=== PATIENT | female | born 1930 | race Caucasian/White ===

== ENCOUNTER 2016-12-23 13:36 | Emergency (ER) | payer OTHER ==
[~2016-12-23] VITALS: Ht 157.5 cm; Wt 56.0 kg
[2016-12-23 13:48] VITALS: BP 107/58; PULSE 86; RESP 16; TEMP 98.2; O2SAT 95
--- NOTE | 2016-12-23 14:10 | PD ---
HPI Chief Complaint: Fall Time Seen by Provider: 13:52 Travel History International Travel<30 days: No Contact w/Intl Traveler<30days: No Traveled to known affect area: No History of Present Illness HPI This 86-year-old female had a fall at home. She was on some stairs with her arms full and she tripped. She had her forearm on something sustaining a laceration. She hit her head. She says her head is not hurting her. She did not have a loss of consciousness. She does have a history of atrial fibrillation and is on Eliquis. PFSH Past Medical History Hx Anticoagulant Therapy: Yes (ELIQUIS) Social History Tobacco Use: No Allergies-Medications (Allergen,Severity, Reaction): Coded Allergies: phenobarbital (Verified Allergy, Unknown, 12/23/16) Reported Meds & Prescriptions Reported Meds & Active Scripts Active Reported Vitamin D3 (Cholecalciferol) 2,000 Unit Cap 2,000 Units PO DAILY Dorzolamide-Timolol Opth Drops 22.3-6.8 Mg/Ml Soln 1 Drop EACH EYE BID Latanoprost Opth Drops (Latanoprost) 0.005% Drops 1 Drop EACH EYE HS Refrigerate until opened. Lisinopril-Hctz 20-12.5 Mg Tab 1 Tab PO DAILY Zoloft (Sertraline HCl) 100 Mg Tab 125 Mg PO DAILY Eliquis (Apixaban) 2.5 Mg Tab 2.5 Mg PO BID Diltiazem ER 24 HR 180 Mg Sunny 180 Mg PO DAILY Niacin 500 Mg Tab 500 Mg PO DAILY Review of Systems General / Constitutional: No: Fever, Chills Eyes: No: Diploplia, Blurred Vision HENT: No: Headaches Cardiovascular: No: Chest Pain or Discomfort, Palpitations Respiratory: No: Cough, Shortness of Breath Gastrointestinal: No: Nausea, Vomiting Genitourinary: No: Urgency, Frequency Musculoskeletal: Positive: Myalgias Skin: No Rash Neurologic: No: Weakness Hematologic/Lymphatic: Positive: Easy Bruising Physical Exam Narrative GENERAL: Well-developed female SKIN: Focused skin assessment warm/dry. There is a 2 cm skin tear on the radial side of the right forearm. There is a hematoma just proximal to this area. HEAD: Atraumatic. Normocephalic. EYES: Pupils equal and round. No scleral icterus. No injection or drainage. ENT: No nasal bleeding or discharge. Mucous membranes pink and moist. NECK: Trachea midline. No JVD. CARDIOVASCULAR: Irregular rate and rhythm. No murmur appreciated. RESPIRATORY: No accessory muscle use. Clear to auscultation. Breath sounds equal bilaterally. GASTROINTESTINAL: Abdomen soft, non-tender, nondistended. Hepatic and splenic margins not palpable. MUSCULOSKELETAL: No obvious deformities. No clubbing. No cyanosis. No edema. NEUROLOGICAL: Awake and alert. No obvious cranial nerve deficits. Motor grossly within normal limits. Normal speech. PSYCHIATRIC: Appropriate mood and affect; insight and judgment normal. Data Data Last Documented VS Vital Signs Date Time Temp Pulse Resp B/P (MAP) Pulse Ox O2 Delivery O2 Flow Rate FiO2 12/23/16 15:08 79 18 126/69 (88) 95 Room Air 12/23/16 13:48 98.2 Orders Orders Tetanus/Diphtheria Tox Adult (Tetanus/Di (12/23/16 14:15) Forearm (2vws) (12/23/16 14:04) Ct Brain W/O Iv Contrast(Rout) (12/23/16 14:04) Wound Care (12/23/16 14:04) MDM Medical Decision Making Medical Screen Exam Complete: Yes Emergency Medical Condition: Yes Medical Record Reviewed: Yes Differential Diagnosis Differential includes skin tear right forearm, contusion forearm, fracture, cerebral hemorrhage, contusion of the head Narrative Course Patient really has no signs of head injury however she is on Eliquis. I have ordered a CT scan. I also ordered an x-ray of the right forearm as there is swelling and tenderness of the forearm in addition to the skin tear. CT of the brain has been read as negative. On the x-ray of the forearm there is a nonspecific geographic lucency of the distal radial shaft for which routine outpatient MRI is recommended. Patient is stable for discharge Diagnosis Primary Impression: Skin tear of right forearm without complication Qualified Codes: S51.811A - Laceration without foreign body of right forearm, initial encounter Additional Impression: Contusion of head Qualified Codes: S00.93XA - Contusion of unspecified part of head, initial encounter Disposition: 01 DISCHARGE HOME Condition: Stable Alfonso Vanegas MD Dec 23, 2016 14:10
[2016-12-23] MEDS ORDERED: TETANUS/DIPHTHERIA TOXOID ADULT 0.5 ML VIAL IM ONE (14:15)
[2016-12-23] MEDS ORDERED: APIX2.5T PO (14:35)
[2016-12-23] MEDS ORDERED: LATA0.002 EACH EYE (14:35)
[2016-12-23] MEDS ORDERED: DORZ2SOL15 EACH EYE (14:35)
[2016-12-23] MEDS ORDERED: DILT0.05 PO (14:35)
[2016-12-23] MEDS ORDERED: ZOLO100T PO (14:35)
[2016-12-23] MEDS ORDERED: LISI20TA PO (14:35)
[2016-12-23] MEDS ORDERED: VITA2000 PO (14:35)
[2016-12-23] MEDS ORDERED: NIAC500T5 PO (14:35)
--- NOTE | 2016-12-23 15:00 | RADRPT ---
EXAM DATE/TIME: 12/23/2016 14:16 [facility] COMPARISON: No previous studies available for comparison. INDICATIONS : Fall hitting the back of her head. RADIATION DOSE: 62.59 CTDIvol (mGy) MEDICAL HISTORY : None SURGICAL HISTORY : None. ENCOUNTER: Initial ACUITY: 1 day PAIN SCALE: 6/10 LOCATION: posterior head. TECHNIQUE: Multiple contiguous axial images were obtained of the head. Using automated exposure control and adj ustment of the mA and/or kV according to patient size, radiation dose was kept as low as reasonably a chievable to obtain optimal diagnostic quality images. DICOM format image data is available electro nically for review and comparison. FINDINGS: CEREBRUM: The ventricles are normal for age. No evidence of midline shift, mass lesion, hemorrhage or acute in farction. No extra-axial fluid collections are seen. POSTERIOR FOSSA: The cerebellum and brainstem are intact. The 4th ventricle is midline. The cerebellopontine angle i s unremarkable. EXTRACRANIAL: The visualized portion of the orbits is intact. SKULL: The calvaria is intact. No evidence of skull fracture. CONCLUSION: No acute intracranial findings. Vijay Gruber MD on December 23, 2016 at 14:58 Board Certified Radiologist. This report was verified electronically.
[2016-12-23 15:08] VITALS: BP 126/69; PULSE 79; RESP 18; O2SAT 95
--- NOTE | 2016-12-23 15:12 | RADRPT ---
EXAM DATE/TIME: 12/23/2016 14:34 [facility] COMPARISON: No previous studies available for comparison. INDICATIONS : Fell on stairs, has right forearm pain MEDICAL HISTORY : None. SURGICAL HISTORY : None. ENCOUNTER: Initial ACUITY: 1 day PAIN SCORE: 7/10 LOCATION: Right forearm FINDINGS: 2 views right forearm. Bone alignment within normal limits. No evidence of fracture. There is an ovo id 1.8 x 0.5 cm area of geographic lucencies seen in the distal radius shaft abutting the lateral cor amelia. No evidence of cortical disruption. 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 CONCLUSION: 1. No evidence of fracture. 2. Nonspecific 1.8 cm cortically-based geographic lucency of the distal radius shaft. Recommend routi ne followup outpatient MRI for this finding to evaluate for bone lesion. Vijay Gruber MD on December 23, 2016 at 15:07 Board Certified Radiologist. This report was verified electronically.
== END 2016-12-23 15:39 | disposition home or self-care (01) ==
LOC: PHED 13:36
DX: S51.811A Laceration without foreign body of right forearm, initial encounter (principal); S00.93XA Contusion of unspecified part of head, initial encounter; W01.0XXA Fall on same level from slipping, tripping and stumbling without subsequent striking against object, initial encounter; I48.91 Unspecified atrial fibrillation; Z79.01 Long term (current) use of anticoagulants
CPT/HCPCS: 70450; 73090; 90471; 90714